=== PATIENT | female | born 1985 | race Hispanic/Latino ===

== ENCOUNTER 2018-03-04 20:44 | Emergency (ER) | payer MEDICAID ==
[2018-03-04] MEDS ORDERED: ONDANSETRON HCL 4 MG/2 ML VIAL ONE (21:06)
[2018-03-04] MEDS ORDERED: SODIUM CHLORIDE 0.9% 1000ML 1,000 ML IV ONE (21:09)
[2018-03-04 21:20] LABS: BASOPHILS % (AUTO) 0.4 % (0.0-5.0); EOSINOPHILS % (AUTO) 1.4 % (0.0-8.0); HEMATOCRIT 35.7 % (36-48); LYMPHOCYTES % (AUTO) 16.8 % (21.0-51.0); MEAN CORPUSCULAR HEMOGLOBIN 23.8 pg (27.0-33.0); MEAN CORPUSCULAR HGB CONC 31.8 g/dL (32.0-36.0); MEAN CORPUSCULAR VOLUME 74.9 fL (79-99); MONOCYTES % (AUTO) 3.6 % (3.0-13.0); NEUTROPHILS % (AUTO) 77.8 % (40.0-77.0); PLATELET COUNT (AUTO) 323 K/uL (130-400); RED BLOOD CELL COUNT(AUTO) 4.77 MIL/uL (4.00-5.50); WHITE BLOOD COUNT (AUTO) 13.5 K/uL (4.8-10.8)
[2018-03-04 21:26] LABS: CREATININE 1.1 mg/dL (0.5-1.5); POTASSIUM 3.1 mmol/L (3.5-5.1)
[2018-03-04 21:27] LABS: INR 1.03 (0.85-1.15); PARTIAL THROMBOPLASTIN TIME 27.7 SEC (26.3-35.5); PROTHROMBIN TIME 10.8 SEC (9.6-11.6)
[2018-03-04 21:37] LABS: ALBUMIN 3.8 g/dL (3.5-5.0); BILIRUBIN,TOTAL 0.5 mg/dL (0.2-1.0); TOTAL PROTEIN, SERUM 8.1 g/dL (6.0-8.3)
[2018-03-04] MEDS ORDERED: POTASSIUM BICARB/CIT AC 25 MEQ TABLET.EFF ONE (23:15)
== END 2018-03-05 01:10 | disposition home or self-care (01) ==
LOC: EDH 20:44
DX: R00.0 Tachycardia, unspecified (principal); J20.9 Acute bronchitis, unspecified; R06.00 Dyspnea, unspecified; R11.2 Nausea with vomiting, unspecified; R10.9 Unspecified abdominal pain; E11.9 Type 2 diabetes mellitus without complications; I10 Essential (primary) hypertension; I63.9 Cerebral infarction, unspecified; Z86.73 Personal history of transient ischemic attack (TIA), and cerebral infarction without residual deficits; Z90.49 Acquired absence of other specified parts of digestive tract; Z98.890 Other specified postprocedural states; Z88.8 Allergy status to other drugs, medicaments and biological substances
CPT/HCPCS: 36415; 71045; 80053; 82550; 83874; 84484; 85025; 85378; 85610; 85730; 93005; 94761; 96361; 96374; 99285; J2405; J7030

== ENCOUNTER 2018-09-22 08:29 | Emergency (ER) | payer MEDICAID ==
[2018-09-22] MEDS ORDERED: ONDANSETRON HCL 4 MG/2 ML VIAL ONE (08:44)
[2018-09-22] MEDS ORDERED: 0.9% SODIUM CHLORIDE 1000 ML IV BAG IV ONE (08:58)
[2018-09-22 09:06] LABS: BASOPHILS % (AUTO) 0.4 % (0.0-5.0); EOSINOPHILS % (AUTO) 1.7 % (0.0-8.0); HEMATOCRIT 34.4 % (36-48); LYMPHOCYTES % (AUTO) 14.3 % (21.0-51.0); MEAN CORPUSCULAR HEMOGLOBIN 24.4 pg (27.0-33.0); MEAN CORPUSCULAR HGB CONC 32.4 g/dL (32.0-36.0); MEAN CORPUSCULAR VOLUME 75.4 fL (79-99); MONOCYTES % (AUTO) 4.9 % (3.0-13.0); NEUTROPHILS % (AUTO) 78.7 % (40.0-77.0); PLATELET COUNT (AUTO) 320 K/uL (130-400); RED BLOOD CELL COUNT(AUTO) 4.56 MIL/uL (4.00-5.50); RED CELL DISTRIBUTION WIDTH 15.8 % (11.0-15.5); WHITE BLOOD COUNT (AUTO) 10.6 K/uL (4.8-10.8)
[2018-09-22 09:22] LABS: CARBON DIOXIDE 25 mmol/L (21-32); CHLORIDE 101 mmol/L (101-111); CREATININE 0.7 mg/dL (0.5-1.5); GLOMERULAR FILTR. RATE CALC 104 mL/min (>60); GLUCOSE,RANDOM 261 mg/dL (70-105); POTASSIUM 3.4 mmol/L (3.5-5.1); SODIUM SERUM 138 mmol/L (136-145); UREA NITROGEN, BLOOD 10 mg/dL (7-18)
[2018-09-22 09:27] LABS: ALANINE AMINOTRANSFERASE 81 U/L (12-78); ALBUMIN 3.8 g/dL (3.5-5.0); ASPARTATE AMINOTRANSFERASE 51 U/L (10-37); BILIRUBIN,TOTAL 0.4 mg/dL (0.2-1.0); TOTAL PROTEIN, SERUM 7.5 g/dL (6.0-8.3)
[2018-09-22 09:33] LABS: RAPID GROUP A STREP NEGATIVE (NEGATIVE)
[2018-09-22 10:00] LABS: ACETONE,BLOOD NEGATIVE (NEGATIVE)
== END 2018-09-22 10:32 | disposition home or self-care (01) ==
LOC: EDH 08:29
DX: E11.65 Type 2 diabetes mellitus with hyperglycemia (principal); R53.1 Weakness; R42 Dizziness and giddiness; R11.2 Nausea with vomiting, unspecified; I10 Essential (primary) hypertension; Z86.73 Personal history of transient ischemic attack (TIA), and cerebral infarction without residual deficits; Z90.49 Acquired absence of other specified parts of digestive tract; Z91.041 Radiographic dye allergy status
CPT/HCPCS: 36415; 71045; 80053; 82009; 82948; 85025; 87804 ×2; 87880; 96361; 96374; 99284; J2405; J7030

== ENCOUNTER 2019-01-17 00:08 | Emergency (ER) | payer MEDICAID ==
[2019-01-17] MEDS ORDERED: DIPHENHYDRAMINE HCL 25 MG CAPSULE ONE (00:51)
== END 2019-01-17 01:06 | disposition home or self-care (01) ==
LOC: EDH 00:08
DX: T63.481A Toxic effect of venom of other arthropod, accidental (unintentional), initial encounter (principal); I10 Essential (primary) hypertension; E11.9 Type 2 diabetes mellitus without complications; Z86.73 Personal history of transient ischemic attack (TIA), and cerebral infarction without residual deficits; Z90.49 Acquired absence of other specified parts of digestive tract; Z98.890 Other specified postprocedural states; Z91.041 Radiographic dye allergy status; Y92.89 Other specified places as the place of occurrence of the external cause
CPT/HCPCS: 99282; Q0163

== ENCOUNTER 2019-05-29 19:16 | Emergency (ER) | payer MEDICAID ==
[2019-05-29] MEDS ORDERED: SODIUM CHLORIDE 0.9% 1000ML 0 ML IV ONE (19:53)
[2019-05-29 19:57] LABS: BASOPHILS % (AUTO) 0.3 % (0.0-5.0); EOSINOPHILS % (AUTO) 0.6 % (0.0-8.0); HEMATOCRIT 32.9 % (36-48); LYMPHOCYTES % (AUTO) 24.6 % (21.0-51.0); MEAN CORPUSCULAR HEMOGLOBIN 23.2 pg (27.0-33.0); MEAN CORPUSCULAR HGB CONC 31.6 g/dL (32.0-36.0); MEAN CORPUSCULAR VOLUME 73.3 fL (79-99); MONOCYTES % (AUTO) 4.2 % (3.0-13.0); NEUTROPHILS % (AUTO) 70.1 % (40.0-77.0); PLATELET COUNT (AUTO) 342 K/uL (130-400); RED BLOOD CELL COUNT(AUTO) 4.49 MIL/uL (4.00-5.50); RED CELL DISTRIBUTION WIDTH 14.9 % (11.0-15.5); WHITE BLOOD COUNT (AUTO) 11.2 K/uL (4.8-10.8)
[2019-05-29] MEDS ORDERED: SODIUM CHLORIDE 0.9% 1000ML 1,000 ML IV ONE (19:57)
[2019-05-29 20:04] LABS: APPEARANCE,URINE Clear (CLEAR); BILIRUBIN,URINE Negative (NEGATIVE); COLOR,URINE Yellow (YELLOW); GLUCOSE, URINE (UA) Negative (NEGATIVE); KETONES,URINE Trace mg/dL (NEGATIVE); LEUKOCYTE ESTERASE ,URINE Small (NEGATIVE); NITRATE,URINE Negative (NEGATIVE); OCCULT BLOOD,URINE Negative (NEGATIVE); PH,URINE 6.5 (5.0-8.0); PROTEIN,URINE POS 1+ mg/dL (NEGATIVE); UROBILINOGEN,URINE 0.2 mg/dL (0.2-1.0)
[2019-05-29 20:06] LABS: AMPHET/METH SCREEN,URINE NEGATIVE (NEGATIVE); BARBITURATE SCREEN, URINE NEGATIVE (NEGATIVE); BENZODIAZEPINES SCREEN,URINE NEGATIVE (NEGATIVE); CANNABINOID SCREEN,URINE POSITIVE (NEGATIVE); COCAINE SCREEN,URINE NEGATIVE (NEGATIVE); OPIATE SCREEN,URINE NEGATIVE (NEGATIVE); PHENCYCLIDINE SCREEN,URINE NEGATIVE (NEGATIVE)
[2019-05-29 20:08] LABS: HCG,QUAL RESULT NEGATIVE (NEGATIVE)
[2019-05-29 20:11] LABS: CREATININE 0.6 mg/dL (0.5-1.5); POTASSIUM 3.4 mmol/L (3.5-5.1)
[2019-05-29 20:15] LABS: BACTERIA,URINE Few /HPF (None Seen); RBC,URINE None Seen /HPF (0-1)
[2019-05-29 20:16] LABS: ALBUMIN 3.9 g/dL (3.5-5.0); BILIRUBIN,TOTAL 0.3 mg/dL (0.2-1.0); TOTAL PROTEIN, SERUM 7.7 g/dL (6.0-8.3)
== END 2019-05-29 21:53 | disposition home or self-care (01) ==
LOC: EDH 19:16
DX: N30.90 Cystitis, unspecified without hematuria (principal); R42 Dizziness and giddiness; F19.10 Other psychoactive substance abuse, uncomplicated; E11.9 Type 2 diabetes mellitus without complications; I10 Essential (primary) hypertension; F41.9 Anxiety disorder, unspecified; Z91.041 Radiographic dye allergy status; Z90.49 Acquired absence of other specified parts of digestive tract
CPT/HCPCS: 36415; 70450; 80053; 80305; 81001; 81025; 82550; 84484; 85025; 96360; 96361; 99285; J7030

== ENCOUNTER 2019-08-03 09:43 | Emergency (ER) | payer MEDICAID ==
[2019-08-03 10:10] LABS: BASOPHILS % (AUTO) 0.1 % (0.0-5.0); EOSINOPHILS % (AUTO) 1.1 % (0.0-8.0); HEMATOCRIT 31.6 % (36-48); LYMPHOCYTES % (AUTO) 14.8 % (21.0-51.0); MEAN CORPUSCULAR HEMOGLOBIN 22.8 pg (27.0-33.0); MEAN CORPUSCULAR VOLUME 73.7 fL (79-99); MONOCYTES % (AUTO) 6.2 % (3.0-13.0); NEUTROPHILS % (AUTO) 77.4 % (40.0-77.0); PLATELET COUNT (AUTO) 301 K/uL (130-400); RED BLOOD CELL COUNT(AUTO) 4.29 MIL/uL (4.00-5.50); RED CELL DISTRIBUTION WIDTH 16.1 % (11.0-15.5); WHITE BLOOD COUNT (AUTO) 7.9 K/uL (4.8-10.8)
[2019-08-03 10:20] LABS: CREATININE 0.7 mg/dL (0.5-1.5); POTASSIUM 3.1 mmol/L (3.5-5.1)
[2019-08-03 10:24] LABS: ALBUMIN 3.6 g/dL (3.5-5.0); BILIRUBIN,TOTAL 0.4 mg/dL (0.2-1.0); TOTAL PROTEIN, SERUM 7.3 g/dL (6.0-8.3)
[2019-08-03 10:53] LABS: INR 1.04 (0.85-1.15); PARTIAL THROMBOPLASTIN TIME 25.7 SEC (26.3-35.5); PROTHROMBIN TIME 10.9 SEC (9.6-11.6)
[2019-08-03 11:47] LABS: APPEARANCE,URINE Clear (CLEAR); BILIRUBIN,URINE Negative (NEGATIVE); COLOR,URINE Yellow (YELLOW); GLUCOSE, URINE (UA) Negative (NEGATIVE); KETONES,URINE 15 mg/dL (NEGATIVE); LEUKOCYTE ESTERASE ,URINE Trace (NEGATIVE); NITRATE,URINE Negative (NEGATIVE); OCCULT BLOOD,URINE Negative (NEGATIVE); PH,URINE 6.5 (5.0-8.0); PROTEIN,URINE Negative (NEGATIVE); UROBILINOGEN,URINE 0.2 mg/dL (0.2-1.0)
[2019-08-03 11:48] LABS: HCG,QUAL RESULT NEGATIVE (NEGATIVE)
[2019-08-03 11:53] LABS: BACTERIA,URINE Rare /HPF (None Seen); RBC,URINE 0-1 /HPF (0-1); SQUAMOUS EPITHELIAL CELL,UR Few /HPF (0-2); WBC,URINE 0-1 /HPF (0-1)
[2019-08-03 11:55] LABS: AMPHET/METH SCREEN,URINE NEGATIVE (NEGATIVE); BARBITURATE SCREEN, URINE NEGATIVE (NEGATIVE); BENZODIAZEPINES SCREEN,URINE NEGATIVE (NEGATIVE); CANNABINOID SCREEN,URINE POSITIVE (NEGATIVE); COCAINE SCREEN,URINE NEGATIVE (NEGATIVE); OPIATE SCREEN,URINE NEGATIVE (NEGATIVE); PHENCYCLIDINE SCREEN,URINE NEGATIVE (NEGATIVE)
[2019-08-03] MEDS ORDERED: POTASSIUM CHLORIDE 20 MEQ ERTAB PO ONE (11:56)
[2019-08-03] MEDS ORDERED: ASPIRIN 325 MG TABLET ONE (11:56)
[2019-08-03] MEDS ORDERED: CYCLOBENZAPRINE HCL 10 MG TABLET ONE (13:36)
== END 2019-08-03 13:42 | disposition home or self-care (01) ==
LOC: EDH 09:43
DX: M54.2 Cervicalgia (principal); I10 Essential (primary) hypertension; R20.2 Paresthesia of skin; R07.89 Other chest pain
CPT/HCPCS: 36415; 71045; 72040; 80053; 80305; 81001; 81025; 82150; 82550; 83690; 84443; 84484; 85025; 85610; 85730; 93005

== ENCOUNTER 2021-06-20 11:52 | Emergency (ER) | payer MEDICAID ==
[~2021-06-20] VITALS: Ht 165.1 cm; Wt 84.4 kg
[2021-06-20] MEDS ORDERED: KETOROLAC 15MG/ML VIAL (15MG/ML) IV SCH (12:30)
[2021-06-20] MEDS ORDERED: MORPHINE 2 MG SYG IVP SCH (12:30)
[2021-06-20] MEDS ORDERED: ONDANSETRON 4MG INJ IVP SCH (12:30)
[2021-06-20] MEDS ORDERED: ACET1TAB25 PO (14:11)
[2021-06-20 15:13] VITALS: BP 134/87
== END 2021-06-20 15:13 | disposition home or self-care (01) ==
LOC: EDH 11:52
DX: S70.01XA Contusion of right hip, initial encounter (principal); M79.642 Pain in left hand; E11.9 Type 2 diabetes mellitus without complications; E78.00 Pure hypercholesterolemia, unspecified; I10 Essential (primary) hypertension; Z79.1 Long term (current) use of non-steroidal anti-inflammatories (NSAID); Z79.899 Other long term (current) drug therapy; Z88.8 Allergy status to other drugs, medicaments and biological substances; Z91.041 Radiographic dye allergy status; Z90.49 Acquired absence of other specified parts of digestive tract; W01.0XXA Fall on same level from slipping, tripping and stumbling without subsequent striking against object, initial encounter; Y93.89 Activity, other specified; Y92.89 Other specified places as the place of occurrence of the external cause; Y99.8 Other external cause status
CPT/HCPCS: 36415; 73130; 73502; 73552; 84702; 84703; 96374; 96375; 99284; J1885; J2405

== ENCOUNTER 2022-07-02 07:13 | Emergency (ER) | payer MEDICAID ==
[~2022-07-02] VITALS: Ht 165.1 cm; Wt 93.0 kg
[~2022-07-02 07:13] MED LIST: ACET-2079 PO
[2022-07-02 07:49] LABS: BASOPHILS % (AUTO) 0.3 % (0.0-5.0); EOSINOPHILS % (AUTO) 1.3 % (0.0-8.0); HEMATOCRIT 37.9 % (36-48); LYMPHOCYTES % (AUTO) 15.5 % (21.0-51.0); MEAN CORPUSCULAR HEMOGLOBIN 29.4 pg (27.0-33.0); MEAN CORPUSCULAR HGB CONC 33.2 g/dL (32.0-36.0); MEAN CORPUSCULAR VOLUME 88.3 fL (79-99); MONOCYTES % (AUTO) 6.5 % (3.0-13.0); NEUTROPHILS % (AUTO) 76.1 % (40.0-77.0); PLATELET COUNT (AUTO) 276 K/uL (130-400); RED BLOOD CELL COUNT(AUTO) 4.29 MIL/uL (4.00-5.50); RED CELL DISTRIBUTION WIDTH 13.1 % (11.0-15.5); WHITE BLOOD COUNT (AUTO) 11.5 K/uL (4.8-10.8)
[2022-07-02 08:03] LABS: APPEARANCE,URINE CLOUDY (CLEAR); BILIRUBIN,URINE NEGATIVE (NEGATIVE); COLOR,URINE LIGHT-YELLOW (YELLOW); GLUCOSE, URINE (UA) NEGATIVE (NEGATIVE); KETONES,URINE NEGATIVE (NEGATIVE); LEUKOCYTE ESTERASE ,URINE 25 Leu/uL (NEGATIVE); NITRATE,URINE NEGATIVE (NEGATIVE); OCCULT BLOOD,URINE NEGATIVE (NEGATIVE); PH,URINE 6.5 (5.0-8.0); PROTEIN,URINE NEGATIVE (NEGATIVE); UROBILINOGEN,URINE 0.2 mg/dL (0.2-1.0)
[2022-07-02 08:07] LABS: HCG,QUALITATIVE URINE NEGATIVE (NEGATIVE)
[2022-07-02 08:08] LABS: CREATININE 0.7 mg/dL (0.5-1.5); POTASSIUM 3.8 mmol/L (3.5-5.1)
[2022-07-02 08:10] LABS: AMPHET/METH SCREEN,URINE NEGATIVE (NEGATIVE); BARBITURATE SCREEN, URINE NEGATIVE (NEGATIVE); BENZODIAZEPINES SCREEN,URINE POSITIVE (NEGATIVE); CANNABINOID SCREEN,URINE POSITIVE (NEGATIVE); COCAINE SCREEN,URINE NEGATIVE (NEGATIVE); OPIATE SCREEN,URINE NEGATIVE (NEGATIVE); PHENCYCLIDINE SCREEN,URINE NEGATIVE (NEGATIVE)
[2022-07-02 08:12] LABS: ALBUMIN 3.7 g/dL (3.5-5.0)
[2022-07-02 08:16] LABS: MUCUS,URINE MANY LPF (None Seen); SQUAMOUS EPITHELIAL CELL,UR MANY /HPF (0-2)
[2022-07-02 08:24] LABS: ALCOHOL, BLOOD < 3 mg/dL (0-10)
[2022-07-02] MEDS ORDERED: GADOTERATE MEGLUMINE 10 MMOL/20 ML VIAL IV ONE (10:22)
[2022-07-02] MEDS ORDERED: ACETAMINOPHEN 500 MG TABLET PO ONE (10:30)
[2022-07-02] MEDS ORDERED: ROSU20TA31 PO (13:03)
[2022-07-02] MEDS ORDERED: IRON-23 PO (13:03)
[2022-07-02] MEDS ORDERED: BREX2TAB PO (13:03)
[2022-07-02] MEDS ORDERED: FLUO40CA49 PO (13:03)
[2022-07-02] MEDS ORDERED: CLON0.3T PO (13:03)
[2022-07-02] MEDS ORDERED: ALPR2TAB7 PO (13:03)
[2022-07-02 14:24] VITALS: BP 123/89
== END 2022-07-02 14:26 | disposition home or self-care (01) ==
LOC: EDH 07:13
DX: R56.9 Unspecified convulsions (principal); E11.9 Type 2 diabetes mellitus without complications; R42 Dizziness and giddiness; R11.0 Nausea; R53.1 Weakness; E78.00 Pure hypercholesterolemia, unspecified; F41.9 Anxiety disorder, unspecified; I10 Essential (primary) hypertension; Z79.899 Other long term (current) drug therapy; Z91.040 Latex allergy status; Z90.49 Acquired absence of other specified parts of digestive tract; Z98.890 Other specified postprocedural states; Z90.89 Acquired absence of other organs
CPT/HCPCS: 99285; 70553; 83735; 80053; 80305; 85025; 81001; 81025; 36415; A9575

== ENCOUNTER 2022-10-06 18:50 | Emergency (ER) | payer MEDICAID ==
[~2022-10-06] VITALS: Ht 165.1 cm; Wt 89.8 kg
[~2022-10-06 18:50] MED LIST changes: -ACET-2079 PO; +ALPR2TAB7 PO; +BREX2TAB PO; +CLON0.3T PO; +FLUO40CA49 PO; +IRON-23 PO; +ROSU20TA31 PO
[2022-10-06] MEDS ORDERED: ONDANSETRON 4MG INJ IVP ONE (19:30)
[2022-10-06] MEDS ORDERED: 0.9%NACL 1000ML 1,000 ML IV SCH (19:30)
[2022-10-06 19:46] LABS: APPEARANCE,URINE CLEAR (CLEAR); BASOPHILS % (AUTO) 0.2 % (0.0-5.0); BILIRUBIN,URINE 1 mg/dL (NEGATIVE); COLOR,URINE YELLOW (YELLOW); EOSINOPHILS % (AUTO) 0.3 % (0.0-8.0); GLUCOSE, URINE (UA) NEGATIVE (NEGATIVE); HEMATOCRIT 28.3 % (36-48); KETONES,URINE 150 mg/dL (NEGATIVE); LEUKOCYTE ESTERASE ,URINE NEGATIVE Leu/uL (NEGATIVE); LYMPHOCYTES % (AUTO) 10.2 % (21.0-51.0); MEAN CORPUSCULAR HEMOGLOBIN 28.7 pg (27.0-33.0); MEAN CORPUSCULAR HGB CONC 32.9 g/dL (32.0-36.0); MEAN CORPUSCULAR VOLUME 87.3 fL (79-99); MONOCYTES % (AUTO) 6.3 % (3.0-13.0); NEUTROPHILS % (AUTO) 82.4 % (40.0-77.0); NITRATE,URINE NEGATIVE (NEGATIVE); OCCULT BLOOD,URINE MODERATE (NEGATIVE); PLATELET COUNT (AUTO) 283 K/uL (130-400); PROTEIN,URINE 30 mg/dL (NEGATIVE); RED BLOOD CELL COUNT(AUTO) 3.24 MIL/uL (4.00-5.50); RED CELL DISTRIBUTION WIDTH 13.3 % (11.0-15.5); UROBILINOGEN,URINE 6 mg/dL (0.2-1.0); WHITE BLOOD COUNT (AUTO) 11.7 K/uL (4.8-10.8)
[2022-10-06 19:51] LABS: MUCUS,URINE RARE LPF (None Seen); SQUAMOUS EPITHELIAL CELL,UR RARE /HPF (0-2)
[2022-10-06 19:53] LABS: CREATININE 0.7 mg/dL (0.5-1.5); POTASSIUM 3.4 mmol/L (3.5-5.1)
[2022-10-06 19:57] LABS: ALBUMIN 3.4 g/dL (3.5-5.0); TOTAL PROTEIN, SERUM 6.8 g/dL (6.0-8.3)
[2022-10-06] MEDS ORDERED: 0.9%NACL 1000ML 1,000 ML IV ONE (21:00)
[2022-10-06] MEDS ORDERED: KETOROLAC 30MG VIAL (30MG/ML) IVP ONE (21:00)
[2022-10-06] MEDS ORDERED: MORPHINE 4 MG SYG IVP ONE (21:00)
[2022-10-06 21:35] VITALS: BP 158/98
== END 2022-10-06 22:29 | disposition home or self-care (01) ==
LOC: EDH 18:50
DX: R11.2 Nausea with vomiting, unspecified (principal); R19.7 Diarrhea, unspecified; R06.02 Shortness of breath; I10 Essential (primary) hypertension; E11.9 Type 2 diabetes mellitus without complications; E78.00 Pure hypercholesterolemia, unspecified; F41.9 Anxiety disorder, unspecified; Z79.899 Other long term (current) drug therapy; Z88.8 Allergy status to other drugs, medicaments and biological substances; Z98.890 Other specified postprocedural states
CPT/HCPCS: 99284; 96374; 96361; 96375; 80053; 83690; 85025; 81001; 81025; 36415; J7030; J2405; J2270; J1885

== ENCOUNTER 2023-03-21 08:02 | Emergency (ER) | payer MEDICAID ==
[~2023-03-21] VITALS: Ht 165.1 cm; Wt 63.5 kg
[~2023-03-21 08:02] MED LIST changes: -ROSU20TA31 PO; +ROSU20TA73 PO
[2023-03-21 08:03] VITALS: BP 166/100; PULSE 72; RESP 16; O2SAT 100
[2023-03-21 08:36] LABS: HEMATOCRIT 39.2 % (36-48); MEAN CORPUSCULAR HEMOGLOBIN 29.7 pg (27.0-33.0); MEAN CORPUSCULAR HGB CONC 33.7 g/dL (32.0-36.0); MEAN CORPUSCULAR VOLUME 88.1 fL (79-99); RED BLOOD CELL COUNT(AUTO) 4.45 MIL/uL (4.00-5.50); RED CELL DISTRIBUTION WIDTH 13.2 % (11.0-15.5); WHITE BLOOD COUNT (AUTO) 9.7 K/uL (4.8-10.8)
[2023-03-21 08:51] LABS: CREATININE 0.8 mg/dL (0.5-1.5); POTASSIUM 3.4 mmol/L (3.5-5.1)
[2023-03-21 08:53] LABS: AMPHET/METH SCREEN,URINE NEGATIVE (NEGATIVE); BARBITURATE SCREEN, URINE NEGATIVE (NEGATIVE); BENZODIAZEPINES SCREEN,URINE POSITIVE (NEGATIVE); CANNABINOID SCREEN,URINE POSITIVE (NEGATIVE); COCAINE SCREEN,URINE NEGATIVE (NEGATIVE); OPIATE SCREEN,URINE NEGATIVE (NEGATIVE); PHENCYCLIDINE SCREEN,URINE NEGATIVE (NEGATIVE)
[2023-03-21 08:56] LABS: BILIRUBIN,TOTAL 0.7 mg/dL (0.2-1.0); TOTAL PROTEIN, SERUM 7.6 g/dL (6.0-8.3)
[2023-03-21] MEDS ORDERED: ONDANSETRON 4MG INJ IVP ONE (09:00)
[2023-03-21] MEDS ORDERED: MORPHINE 4 MG SYG IVP ONE (09:00)
[2023-03-21] MEDS ORDERED: LACTATED RINGERS 1000ML 1,000 ML IV ONE (09:00)
[2023-03-21 09:28] LABS: APPEARANCE,URINE CLOUDY (CLEAR); BILIRUBIN,URINE NEGATIVE (NEGATIVE); COLOR,URINE YELLOW (YELLOW); GLUCOSE, URINE (UA) NEGATIVE (NEGATIVE); KETONES,URINE 10 mg/dL (NEGATIVE); LEUKOCYTE ESTERASE ,URINE 250 Leu/uL (NEGATIVE); NITRATE,URINE NEGATIVE (NEGATIVE); OCCULT BLOOD,URINE NEGATIVE (NEGATIVE); PH,URINE 5.5 (5.0-8.0); PROTEIN,URINE 30 mg/dL (NEGATIVE); UROBILINOGEN,URINE 3 mg/dL (0.2-1.0)
[2023-03-21 09:34] LABS: ADD UA MICROSCOPIC YES
[2023-03-21 09:36] LABS: BACTERIA,URINE MANY /HPF (None Seen); MUCUS,URINE MANY LPF (None Seen); NON-SQUAMOUS EPITHELIAL CELL <1 /HPF (0-2); SQUAMOUS EPITHELIAL CELL,UR MANY /HPF (0-2); TRANSITIONAL EPI CELLS,URINE RARE /HPF (None Seen); WBC,URINE 26-50 /HPF (0-1)
== END 2023-03-21 10:32 | disposition left against medical advice (07) ==
LOC: EDH 08:02
DX: R11.2 Nausea with vomiting, unspecified (principal); Z53.21 Procedure and treatment not carried out due to patient leaving prior to being seen by health care provider
CPT/HCPCS: 36415; 80053; 80305; 81001; 81025; 83690; 85027; 87077; 87088; 87186; 99281

== ENCOUNTER 2023-04-22 08:38 | Day surgery (SDC) | payer MEDICAID ==
[2023-04-17 11:29] VITALS: BP 119/69; PULSE 64; RESP 18
[~2023-04-22] VITALS: Ht 165.1 cm; Wt 74.5 kg
[2023-04-22] VITALS (17 sets, daily range): BP systolic 130–170; BP diastolic 76–90; PULSE 56–85; RESP 16–22
[~2023-04-22 08:38] MED LIST changes: -IRON-23 PO; -ROSU20TA73 PO
[2023-04-22] MEDS ORDERED: 0.9%NACL 1000ML 1,000 ML IV ONE (09:18)
[2023-04-22] MEDS ORDERED: CEFAZOLIN SODIUM 2 GM VIAL ONE (09:18)
[2023-04-22 09:35] LABS: BASOPHILS # (AUTO) 0.02 K/uL (0.00-0.20); BASOPHILS % (AUTO) 0.3 % (0.0-5.0); EOSINOPHILS # (AUTO) 0.09 K/uL (0.00-0.70); EOSINOPHILS % (AUTO) 1.5 % (0.0-8.0); HEMATOCRIT 35.7 % (36-48); IMMATURE GRANULOCYTE ABSOLUTE 0.02 K/uL (0-1); LYMPHOCYTES # (AUTO) 1.8 K/uL (1.0-4.8); LYMPHOCYTES % (AUTO) 29.7 % (21.0-51.0); MEAN CORPUSCULAR HEMOGLOBIN 29.9 pg (27.0-33.0); MEAN CORPUSCULAR HGB CONC 33.1 g/dL (32.0-36.0); MEAN CORPUSCULAR VOLUME 90.4 fL (79-99); MONOCYTES # (AUTO) 0.3 K/uL (0.1-1.0); MONOCYTES % (AUTO) 5.4 % (3.0-13.0); NEUTROPHILS # (AUTO) 3.7 K/uL (1.8-7.7); NEUTROPHILS % (AUTO) 62.8 % (40.0-77.0); PLATELET COUNT (AUTO) 257 K/uL (130-400); RED BLOOD CELL COUNT(AUTO) 3.95 MIL/uL (4.00-5.50)
[2023-04-22] MEDS ORDERED: SUCCINYLCHOLINE CHLORIDE 20 MG/ML 10 ML VIAL ONE (10:34)
[2023-04-22] MEDS ORDERED: ONDANSETRON 4MG INJ ONE ×2 (10:34→11:44)
[2023-04-22] MEDS ORDERED: NEOSTIGMINE 5MG/5ML SYR IV ONE (10:34)
[2023-04-22] MEDS ORDERED: LIDOCAINE PF 100MG/5ML (2%) SYRINGE 5ML ONE (10:34)
[2023-04-22] MEDS ORDERED: GLYCOPYRROLATE 1 MG/5 ML SYRINGE ONE (10:34)
[2023-04-22] MEDS ORDERED: PROPOFOL 10 MG/ML 20ML VIAL IV ONE (10:34)
[2023-04-22] MEDS ORDERED: DEXAMETHASONE SOD PHOSPHATE 10MG/ML 1ML VIAL ONE (10:34)
[2023-04-22] MEDS ORDERED: FENTANYL CITRATE PF 50 MCG/1 ML 2ML VIAL ONE (10:35)
[2023-04-22] MEDS ORDERED: ROCURONIUM 10MG/1ML SYR 10 MG/ML ML ONE (10:35)
[2023-04-22] MEDS ORDERED: MIDAZOLAM HCL 1 MG/ML 2ML VIAL ONE (10:35)
[2023-04-22] MEDS ORDERED: CEFAZOLIN SODIUM 2 GM VIAL IVPB ONE (10:45)
[2023-04-22] MEDS ORDERED: BUPIVACAINE/PF 0.25% 30ML VIAL IJ ONE ×2 (10:47→11:25)
[2023-04-22] MEDS ORDERED: SUGAMMADEX SODIUM 200 MG/2 ML VIAL IV ONE (11:40)
[2023-04-22] MEDS ORDERED: HYDRALAZINE 20MG/ML VIAL ONE (12:12)
[2023-04-22] MEDS ORDERED: ACETAMINOPHEN 325 MG TAB ONE (13:04)
== END 2023-04-22 13:30 | disposition home or self-care (01) ==
LOC: DAH 08:38
PROVIDERS: ATTEND Surgery
DX: K80.10 Calculus of gallbladder with chronic cholecystitis without obstruction (principal); E11.9 Type 2 diabetes mellitus without complications; I10 Essential (primary) hypertension; K76.0 Fatty (change of) liver, not elsewhere classified; Z82.49 Family history of ischemic heart disease and other diseases of the circulatory system; Z83.3 Family history of diabetes mellitus; Z91.041 Radiographic dye allergy status; Z79.899 Other long term (current) drug therapy; Z98.891 History of uterine scar from previous surgery; Z98.890 Other specified postprocedural states
CPT/HCPCS: 81025; 47562; 88304; 84703; 85025; 82948 ×2; 36415; A6260; A4663; J7030 ×2; J3010; J3490 ×3; J1100; J2710; J0330; J0665 ×2; J0360; J2250; J2405 ×2; J0690 ×2; C1769 ×3; A4649; A4215; A4223; A4222; A4221; A4600; J2001; J2704

== ENCOUNTER 2023-09-03 23:20 | Emergency (ER) | payer MEDICAID ==
[2023-09-04 00:01] LABS: BASOPHILS # (AUTO) 0.02 K/uL (0.00-0.20); BASOPHILS % (AUTO) 0.3 % (0.0-5.0); EOSINOPHILS # (AUTO) 0.09 K/uL (0.00-0.70); EOSINOPHILS % (AUTO) 1.6 % (0.0-8.0); HEMATOCRIT 32.1 % (36-48); IMMATURE GRANULOCYTE ABSOLUTE 0.01 K/uL (0-1); LYMPHOCYTES # (AUTO) 2.1 K/uL (1.0-4.8); LYMPHOCYTES % (AUTO) 35.8 % (21.0-51.0); MEAN CORPUSCULAR HEMOGLOBIN 30.1 pg (27.0-33.0); MEAN CORPUSCULAR HGB CONC 34.6 g/dL (32.0-36.0); MONOCYTES # (AUTO) 0.3 K/uL (0.1-1.0); MONOCYTES % (AUTO) 4.9 % (3.0-13.0); NEUTROPHILS # (AUTO) 3.3 K/uL (1.8-7.7); NEUTROPHILS % (AUTO) 57.2 % (40.0-77.0); PLATELET COUNT (AUTO) 248 K/uL (130-400); RED BLOOD CELL COUNT(AUTO) 3.69 MIL/uL (4.00-5.50); RED CELL DISTRIBUTION WIDTH 11.9 % (11.0-15.5); WHITE BLOOD COUNT (AUTO) 5.8 K/uL (4.8-10.8)
[2023-09-04 00:09] LABS: CREATININE 0.6 mg/dL (0.5-1.0); POTASSIUM 3.7 mmol/L (3.5-5.1)
[2023-09-04 00:12] LABS: ALBUMIN 3.4 g/dL (3.5-5.0); BILIRUBIN,TOTAL 0.2 mg/dL (0.2-1.0); TOTAL PROTEIN, SERUM 6.3 g/dL (6.0-8.3)
[2023-09-04] MEDS: LACTATED RINGERS 1000ML 1,000 ML IV ONE (00:31)
[2023-09-04] MEDS: 0.9%NACL 1000ML 2,000 ML IV ONE (02:46)
[2023-09-04 06:15] VITALS: BP 120/78; PULSE 62; RESP 16; O2SAT 100
== END 2023-09-04 06:16 | disposition home or self-care (01) ==
LOC: EDH 23:20
DX: E86.0 Dehydration (principal); R42 Dizziness and giddiness; F41.9 Anxiety disorder, unspecified; E11.9 Type 2 diabetes mellitus without complications; E78.00 Pure hypercholesterolemia, unspecified; I10 Essential (primary) hypertension; Z79.899 Other long term (current) drug therapy; Z88.8 Allergy status to other drugs, medicaments and biological substances; Z91.041 Radiographic dye allergy status
CPT/HCPCS: 99284; 80053; 84703; 83690; 85025; 86850; 86900; 86901; 36415; 96360; 96361; 93005; J7120; J7030